=== PATIENT | female | born 1960 ===

== ENCOUNTER 2016-07-19 09:27 | Outpatient (CLI) | payer OTHER | END 2016-07-19 09:28 | disposition home or self-care (01) | DRG 561 | LOC: CONVCARE 09:27 | PROVIDERS: ATTEND Orthopaedic Surgery | DX: Z47.89 Encounter for other orthopedic aftercare (principal); Z98.890 Other specified postprocedural states | CPT/HCPCS: 73030 ==

== ENCOUNTER 2017-04-29 13:15 | Emergency (ER) | payer OTHER ==
[2017-04-29 13:25] LABS: APPEARANCE,URINE Slightly Cloudy; BILIRUBIN,URINE NEGATIVE (NEGATIVE); COLOR,URINE Yellow; GLUCOSE, URINE (UA) NEGATIVE (NEGATIVE); KETONES,URINE TRACE (NEGATIVE); LEUKOCYTE ESTERASE ,URINE NEGATIVE (NEGATIVE); NITRATE,URINE NEGATIVE (NEGATIVE); OCCULT BLOOD,URINE 1+ (NEG-TRACE); UROBILINOGEN,URINE 0.2 (0.2-1.0 EU)
[2017-04-29] MEDS: SODIUM CHLORIDE 0.9% 1000ML 1,000 ML IV SCH ×3 (13:35→15:45)
[2017-04-29] MEDS ORDERED: ONDANSETRON HCL 4 MG/2 ML 4 MG in SODIUM CHLORIDE 0.9% 100 ML 100 ML IV ONE (13:39)
[2017-04-29] MEDS ORDERED: KETOROLAC TROMETHAMINE 30 MG/ML SOL IV ONE (13:39)
[2017-04-29 13:40] LABS: RBC,URINE 0-5 (0-3AV/HPF); WBC,URINE 0-3 (0-5AV/HPF)
[2017-04-29] MEDS ORDERED: MORPHINE SULFATE 10 MG/ML SOL IV ONE (13:40)
[2017-04-29] MEDS ORDERED: ONDANSETRON HCL 4 MG/2 ML SOL ONE (13:41)
[2017-04-29] MEDS ORDERED: KETOROLAC TROMETHAMINE 30 MG/ML SOL ONE (13:41)
[2017-04-29] MEDS ORDERED: MORPHINE SULFATE 10 MG/ML SOL ONE (13:48)
[2017-04-29 14:02] LABS: BASOPHILS % (AUTO) 1 % (0-3); EOSINOPHILS % (AUTO) 3 % (0-9); HEMATOCRIT 37 % (35-47); MEAN CORPUSCULAR HGB CONC 35.1 gm/dl (32.0-36.0); MEAN CORPUSCULAR VOLUME 87 fL (81-99); MONOCYTES % (AUTO) 4.9 % (0-12); NEUTROPHILS % (AUTO) 65.1 % (37-80)
[2017-04-29 14:12] LABS: CALCIUM 8.8 mg/dl (8.5-10.1); POTASSIUM 3.6 mMol/L (3.5-5.1)
[2017-04-29 14:50] VITALS: BP 145/91; PULSE 80; RESP 16; O2SAT 98
[2017-04-29 16:00] VITALS: TEMP 98.2
== END 2017-04-29 15:56 | disposition home or self-care (01) ==
LOC: ED 13:15
DX: N13.2 Hydronephrosis with renal and ureteral calculous obstruction (principal)
CPT/HCPCS: 36415; 74176; 80048; 81001; 85025; 96365; 96374; 96375; 99284; 99285; J1885; J2270; J2405

== ENCOUNTER 2017-11-27 14:29 | Outpatient (CLI) | payer OTHER ==
[2017-04-29 14:50] VITALS: O2SAT 98
[2017-11-27 21:25] LABS: *RHEUMATOID FACTOR <10 IUnits/mL (<30)
[2017-11-29 10:54] LABS: *LYME DISEASE SCREEN Negative (Negative)
[2017-11-30 06:43] LABS: *ANA SCREEN 0.2 U
== END 2017-11-27 14:30 | disposition home or self-care (01) ==
LOC: CONVCARE 14:29
PROVIDERS: ATTEND Orthopaedic Surgery
DX: M25.532 Pain in left wrist (principal); M79.89 Other specified soft tissue disorders; M79.642 Pain in left hand; R20.2 Paresthesia of skin
CPT/HCPCS: 36415; 85651

== ENCOUNTER 2018-12-10 18:23 | Emergency (ER) | payer OTHER ==
[2018-12-10 18:23] VITALS: O2SAT 98
[2018-12-10 18:37] VITALS: BP 114/76; PULSE 72; RESP 16; TEMP 97.4
[2018-12-10] MEDS ORDERED: DOXYCYCLINE 100 MG TAB PO SCH (19:00)
== END 2018-12-10 19:12 | disposition home or self-care (01) ==
LOC: ED 18:23
DX: L03.317 Cellulitis of buttock (principal); S30.860A Insect bite (nonvenomous) of lower back and pelvis, initial encounter
CPT/HCPCS: 99282; 99283